=== PATIENT | female | born 1960 | race Caucasian/White ===

== ENCOUNTER 2024-12-20 18:57 | Emergency (ER) | payer MEDICARE, OTHER, SELFPAY ==
[2024-12-20 19:07] VITALS: BP 145/80
[2024-12-20 19:39] LABS: Hematocrit 33.8 % (37.0-47.0); Hemoglobin 11.5 g/dL (12.0-16.0); Mean Corp Hgb Conc. 34.0 g/dL (33.0-37.0); Mean Corpuscular Volume 83.0 fL (81.0-99.0); Nucleated Red Blood Cells % 0 %; Platelet Count 247 10^3/uL (130-400); Red Cell Dist. Width 12.5 % (11.5-14.5)
[2024-12-20 19:55] LABS: ALT (SGPT) 18 U/L (0-35); AST (SGOT) 29 U/L (14-36); Albumin 4.1 g/dl (3.5-5.0); Alkaline Phosphatase 52 U/L (38-126); Blood Urea Nitrogen 10 mg/dl (7-17); Calcium 8.9 mg/dl (8.4-10.2); Carbon Dioxide 21 mmol/L (22-30); Chloride 96 mmol/L (98-107); Glucose 127 mg/dl (70-99); Potassium 3.9 mmol/L (3.5-5.1); Sodium 127 mmol/L (135-145); Total Protein 7.5 g/dl (6.3-8.2); eGFR > 60.00
[2024-12-20 20:38] LABS: Urine Character Clear (Clear)
[2024-12-20 22:14] VITALS: BP 146/70
[2024-12-20 22:17] VITALS: BMI 39.6
--- NOTE | 2024-12-20 22:22 | ED.GENMED ---
History of Present Illness
General
Chief Complaint: Fever
Source: patient and spouse
Exam Limitations: none
Time Seen by Provider: 12/20/24 22:03
Nursing documentation reviewed up to this point in time: agreed with
History of Present Illness
History of Present Illness:
Patient presents to ED secondary to 4-day history of 'not feeling well', along with fever for the past 2 days, as well as decreased appetite. Patient reports mild nausea sensation without vomiting or diarrhea. Patient has noted to cough at
nighttime over the past 2 days. Denies chest pain. Denies abdominal pain. Denies sore throat. Denies sick contact. Denies recent travel. Denies rash. Denies insect or bug bites. Denies previous history of similar symptoms. Patient was
evaluated urgent care center where she was told that she has UTI along with evidence of dehydration. Patient tested negative for flu and COVID-19. Patient took Tylenol approximately 3 hours ago.
Review of Systems
Review of Systems
Allergies reviewed?: Yes
All Other Systems: ROS reviewed and negative except as documented in HPI and ROS
Constitutional: Reports fever
Respiratory: Reports cough; Denies trouble breathing
Cardiac: Reports no symptoms
ABD/GI: Reports nausea; Denies abdominal pain, vomiting or diarrhea
Musculoskeletal: Reports no symptoms
Skin: Reports no symptoms; Denies rash
Neurological: Reports headache
Phy Exam
Physical Exam
Physical Exam:
Physical Exam
General: no apparent distress, not acutely ill. afebrile
Head: nc/at. eomi
Neck: supple. no meningeal signs. normal posterior pharynx
Heart: s1/s2 regular rate and rhythm
Lungs: no acute respiratory distress. clear bilaterally
Abdomen: normal bowel sounds. not tender.
Neuro: alert and oriented x 3. no focal neurological deficits
Skin: no rash
Psychiatric: well kept. interactive and cooperative
Extremities: no edema. no calf tenderness.
Course
Orders/Labs/Results
Orders:
Orders
12/20/24 19:29
Complete Blood Count/With Diff Urgent
Comprehensive Metabolic Panel Urgent
Serum Osmolality Urgent
Comment: ADD ON
12/20/24 20:30
Osmolality, Random Urine Urgent
Date Specimen was Collected: 12/20/24
Time Specimen was Collected: 20:23
Comment: ADD ON
Urinalysis Reflex To Culture Urgent
Date Specimen was Collected: 12/20/24
Time Specimen was Collected: 20:23
Urine Microscopic Reflex Cult Urgent
Urine Sodium Urgent
Date Specimen was Collected: 12/20/24
Time Specimen was Collected: 20:23
Comment: ADD ON
Legionella Urinary Antigen Urgent
BEBE Source: U
Specimen Description:
12/20/24 22:04
Add On- LAB Urgent
Tests Added?: serum osm, urine osm, urine sodium
12/20/24 22:21
0.9% Sodium Chloride 1000 ml [Nss] 1,000 ml IV BOLUS
12/20/24 22:22
CR Chest - 2 Views Urgent
Comment:
Reason For Exam: fever with cough
12/20/24 22:36
Blood Culture Q30M
BEBE Source: Blood/Venous
Specimen Description:
Blood Culture Q30M
BEBE Source: Blood/Venous
Specimen Description:
12/20/24 22:45
Lactic Acid Q4H
Comment: CANCEL 2nd LACTIC ACID IF 1st LACTIC ACID IS LESS THAN 2
12/21/24 00:36
LevoFLOXacin [Levaquin] 500 mg PO NOW STA
12/21/24 00:39
Add On- LAB Urgent
Tests Added?: urinary legionella antigen
Abnormal Lab Results
12/20/24 12/20/24
19:29 20:30
WBC 12.9 H 10^3/uL
(4.8-10.8)
RBC 4.07 L 10^6/uL
(4.20-5.40)
Hgb 11.5 L g/dL
(12.0-16.0)
Hct 33.8 L %
(37.0-47.0)
Abs Immat Gran (auto) 0.1 H 10^3/uL
(0-0.05)
Absolute Neuts (auto) 9.9 H 10^3/uL
(1.4-6.5)
Absolute Monos (auto) 1.5 H 10^3/uL
(0.1-0.6)
Neutrophils % 76.7 H %
(42.2-75.2)
Lymphocytes % 10.0 L %
(20.5-51.1)
Monocytes % 11.9 H %
(1.7-9.3)
Sodium 127 L mmol/L
(135-145)
Chloride 96 L mmol/L
(98-107)
Carbon Dioxide 21 L mmol/L
(22-30)
Glucose 127 H mg/dl
(70-99)
Serum Osmolality 263 L mOsm/kg
(275-300)
Urine Ketones 3+ A
(Negative)
Ur Occult Blood Reflex 2+ A
(Negative)
Urine RBC 3-6 A /HPF
(0-2)
Urine Bacteria (Reflex) Few A
(Negative)
Urine Osmolality 136 L mOsm/kg
(300-900)
Urine Sodium < 5 L mmol/L
(30-90)
Urine Albumin (Reflex) 2+ A
(Neg - Trace)
12/20/24 19:29
12/20/24 19:29
Vital Signs
Initial and Last Documented VS:
Initial Vital Signs
Temp Pulse Resp BP Pulse Ox
99.2 F 94 16 145/80 95
08/08/25 19:07 12/20/24 19:07 12/20/24 19:07 12/20/24 19:07 12/20/24 19:07
Last Documented Vital Signs
Temp Pulse Resp BP Pulse Ox
99.2 F 84 15 126/72 94
12/20/24 19:07 12/21/24 00:28 12/20/24 23:00 12/21/24 00:00 12/21/24 00:45
MDM/Problems Addressed
MDM/Problems Addressed:
History, exam, and chest x-ray concerning for pneumonia. Patient's urgent care center urinalysis noted, significant for leukocytes esterase and nitrites, suggestive of UTI. However, when repeated in ED, ketones noted with findings concerning for
contamination, without obvious evidence of UTI. Blood work significant for mild leukocytosis with hyponatremia. Hyponatremia, likely secondary to poor oral with dehydration, based on history. Patient given IV fluids in ED with improvement in
symptoms. Patient states that she feels 'more clear', confirmed by . Discussed treatment options, including admission to the hospital for continued IV fluids and IV antibiotics. However, at this time, patient and spouse feel comfortable
going home, as they are from [place]. As such, decision made to provide patient with antibiotics, with recommendation to follow-up with PCP as soon as she returns home, or consider return to ED with worsening symptoms. Patient otherwise is
afebrile, hemodynamically stable, neurologic intact, and appears comfortable, at time of discharge.
Blood culture pending.
Urinary Legionella antigen pending.
*Pulse Oximetry
SaO2: 95
Oxygen Mode of Delivery: Room air
Patient hypoxic: no
*Critical Care Note
Total Time (30-74mins, 75-104mins- exclusive of procedures): Not Applicable
ED Attending Note
-
Portions of this chart may have been created with voice recognition software.� Occasional wrong word or��sound alike� substitutions may have occurred due to the inherent limitations of voice recognition software.
Discharge Plan
Departure
Patient Disposition: Home (Routine Discharge)
Date of Disposition: 12/21/24
Time of Disposition: 00:44
Patient with high blood pressure during this ER visit?: Yes
Condition: Fair
Discharge Problem:
Pneumonia, Hyponatremia
Instructions: Hyponatremia, Pneumonia in adults - ED discharge instructions
Prescriptions:
New
levofloxacin 500 mg tablet
500 mg PO DAILY Qty: 6 0RF
Referrals:
PRIVATE,PHYSICIAN [Family Provider, Internal Medicine]
Activity Restrictions/Additional Instructions:
As discussed, please follow-up with your primary care physician for reevaluation, or return to ED with worsening symptoms.
Interventions
Interventions:
*Risk Screen - Suicide Last Done: 12/20/24 19:10
*General Assessment Last Done: 12/20/24 22:22
*Neglect/Abuse Screening Last Done: 12/20/24 22:22
*ED- Fall Risk Assessment Last Done: 12/20/24 22:22
*ED COVID-19 Vaccine History Last Done: 12/20/24 22:22
*Nursing Disposition Last Done: 12/21/24 01:16
ED- Neurological Assessment Last Done: 12/20/24 22:47
ED-Skin Assessment Last Done: 12/20/24 22:47
Discharge Date and Time
Discharge Date/Time: 12/21/24 01:00
Print Language: MALTESE
[2024-12-20] MEDS: NSS 1000 IV (22:34)
[2024-12-20 23:00] VITALS: BP 151/71
[2024-12-20 23:51] VITALS: BP 135/65
[2024-12-21] VITALS: BP 126/72
[2024-12-21] MEDS: LEVAQUIN 500 MG PO (00:49)
== END 2024-12-21 01:00 | disposition home or self-care (01) ==
LOC: EMR 18:57
PROVIDERS: Student in an Organized Health Care Education/Training Program; EMERGENCY PHYSICIAN Emergency Medicine
DX: J18.9 Pneumonia, unspecified organism (principal); E87.1 Hypo-osmolality and hyponatremia; E86.0 Dehydration; R03.0 Elevated blood-pressure reading, without diagnosis of hypertension
CPT/HCPCS: 99284; 96360; 71046; 80053; 81003; 81015; 83605; 83930; 83935; 84300; 85025; 87040; 87449